=== PATIENT | female | born 1975 ===

== ENCOUNTER 2019-01-06 19:25 | Emergency (ER) | payer BC, OTHER ==
[~2019-01-06] VITALS: Ht 157.5 cm; Wt 53.1 kg
== END 2019-01-06 20:42 | disposition home or self-care (01) ==
LOC: ER 19:25
DX: S61.214A Laceration without foreign body of right ring finger without damage to nail, initial encounter (principal); W25.XXXA Contact with sharp glass, initial encounter; Z88.8 Allergy status to other drugs, medicaments and biological substances
CPT/HCPCS: 12001; 90471; 90714; 99282-25

== ENCOUNTER 2019-01-15 19:19 | Emergency (ER) | payer BC, OTHER ==
[~2019-01-15] VITALS: Ht 157.5 cm; Wt 53.1 kg
== END 2019-01-15 19:37 | disposition home or self-care (01) ==
LOC: ER 19:19
DX: S61.214D Laceration without foreign body of right ring finger without damage to nail, subsequent encounter (principal); S61.210D Laceration without foreign body of right index finger without damage to nail, subsequent encounter; W25.XXXD Contact with sharp glass, subsequent encounter
CPT/HCPCS: 99281

== ENCOUNTER → 2019-02-19 | Outpatient (CLI) | payer BC, OTHER ==
[2019-02-19 18:33] LABS: Alanine Aminotransfer (ALT/SGP 12 U/L (12-78); Albumin, Blood 3.9 g/dL (3.4-5.0); Alk Phos 60 U/L (40-126); Anion Gap 7 mmol/L (6-16); Aspartate Aminotrans (AST/SGOT 17 U/L (12-37); Bilirubin, Total 0.4 mg/dL (0.1-1.0); Blood Urea Nitrogen 15 mg/dL (8-24); Bun/Creatinine Ratio 21.4 (12.0-20.0); CO2, Blood 29 mmol/L (21-32); Calcium, Blood 9.1 mg/dL (8.5-10.1); Chloride, Blood 102 mmol/L (98-108); Glomerular Filtration Rate >60 (60-); Glucose, Blood 96 mg/dL (70-99); Potassium, Blood 3.5 mmol/L (3.5-5.5); Sodium, Blood 138 mmol/L (136-145); Total Protein, Blood 7.9 g/dL (6.4-8.2)
[2019-02-19 19:31] LABS: CHOL/HDL RATIO 3.3; Cholesterol 219 mg/dL (50-200); HDL Cholesterol 67 mg/dL (>39); LDL/HDL RATIO 2.1; Low Density Lipoprotein Chol 138 mg/dL (0-110); Triglycerides 71 mg/dL (30-160); Very Low Density Lipoprot Chol 14 mg/dL (6-32)
== END | disposition home or self-care (01) ==
LOC: LAB SHORT 17:15 → LAB EV 17:15
PROVIDERS: Family Medicine
DX: E78.2 Mixed hyperlipidemia (principal); L85.3 Xerosis cutis
CPT/HCPCS: 36415; 80053; 80061; 84443